=== PATIENT | female | born 1990 | race Caucasian/White ===

== ENCOUNTER 2018-03-29 12:15 | Day surgery (SDC) | payer BC ==
[2018-03-29 13:09] LABS: ADD MAN DIFF? NO
[2018-03-29 13:14] LABS: WHITE BLOOD COUNT 4.6 10^3/ul (4.8-10.8)
[2018-03-29 13:14] LABS: BASOPHILS % 0.4 % (0.0-2.0); EOSINOPHILS # 0.1 10^3/ul (0.0-0.5); EOSINOPHILS % 1.3 % (0.0-7.0); HEMATOCRIT 41.2 % (37.0-47.0); HEMOGLOBIN 13.6 g/dl (12.0-16.0); LYMPHOCYTES # 1.7 10^3/ul (0.8-2.9); LYMPHOCYTES % 36.7 % (15.0-51.0); MEAN CORPUSCULAR HEMOGLOBIN 28.6 pg (29.0-33.0); MEAN CORPUSCULAR VOLUME 86.7 fl (82.0-101.0); MEAN PLATELET VOLUME 10.9 fl (7.4-10.4); MONOCYTE # 0.5 10^3/ul (0.3-0.9); MONOCYTES % 10.3 % (0.0-11.0); NEUTROPHIL # 2.3 10^3/ul (1.6-7.5); NEUTROPHILS % 51.1 % (39.0-77.0); PLATELET COUNT 238 10^3/UL (140-415); RED BLOOD COUNT 4.75 10^6/ul (4.20-5.40); RED CELL DISTRIBUTION WIDTH 11.7 % (11.5-14.5)
[2018-03-29 13:39] LABS: PROTIME 14.4 Sec (11.9-14.9); PT RATIO 1.1
[2018-03-29 13:40] LABS: PARTIAL THROMBOPLASTIN TIME 33.4 Sec (23.0-35.0)
[2018-03-29] MEDS ORDERED: MIDAZOLAM 1 MG/ML 2 ML INJ (15:11)
[2018-03-29] MEDS ORDERED: ROCURONIUM 50 MG INJ (15:11)
[2018-03-29] MEDS ORDERED: NEOSTIGMINE 3 MG/3 ML SYRINGE (15:11)
[2018-03-29] MEDS ORDERED: GLYCOPYRROLATE 0.4 MG INJ (15:11)
[2018-03-29] MEDS ORDERED: PROPOFOL 20 ML (15:11)
[2018-03-29] MEDS ORDERED: ONDANSETRON 4 MG INJ (15:11)
[2018-03-29] MEDS ORDERED: METOCLOPRAMIDE 10 MG INJ (15:11)
[2018-03-29] MEDS ORDERED: FENTAnyl 50 MCG/ML VIAL (15:15)
[2018-03-29] MEDS ORDERED: LIDOCAINE 2% JELLY 5 ML (15:25)
[2018-03-29] MEDS ORDERED: HYDROmorphONE 1 MG/5 ML IV SYRINGE IV ×3 (15:30)
[2018-03-29] MEDS ORDERED: MEPERIDINE 25 MG INJ IV (15:30)
[2018-03-29] MEDS ORDERED: ONDANSETRON 4 MG INJ IV (15:30)
[2018-03-29] MEDS ORDERED: DIPHENHYDRAMINE 50 MG INJ IV (15:30)
[2018-03-29] MEDS: LIDOCAINE 1%/EPI 30 ML INJ (15:35)
[2018-03-29] MEDS: OXYMETAZOLINE 0.05% 15 ML NAS SPRAY NASAL (15:40)
[2018-03-29] MEDS: OXYCODONE/ACETAMINOPHEN (5/325) TAB PO (17:16)
== END 2018-03-29 18:00 | disposition home or self-care (01) ==
LOC: SDS 12:15
DX: J34.2 Deviated nasal septum (principal); J34.3 Hypertrophy of nasal turbinates
CPT/HCPCS: 30140; 85025; 85610; 85730; 88300